=== PATIENT | female | born 1975 | race Caucasian/White ===

== ENCOUNTER 2018-07-06 14:22 | Emergency (ER) | payer BC ==
[~2018-07-06] VITALS: Ht 162.6 cm; Wt 49.4 kg
[2018-07-06 14:35] VITALS: Ht 162.6 cm; Wt 49.4 kg
[2018-07-06 15:32] LABS: BASOPHIL % 1.3 % (0-2); PLATELET COUNT 206 x10^3mcL (130-400)
[2018-07-06 15:44] LABS: RED CELL DISTRIBUTION WIDTH 16.9 % (11.5-14.5)
[2018-07-06 15:50] LABS: CARBON DIOXIDE 24.2 mmol/L (21-32); CHLORIDE SERUM 110 mmol/L (98-107); CREATININE SERUM 0.6 mg/dL (0.6-1.0); GFR1 > 60 mL/min; GLUCOSE SERUM 103 mg/dL (74-106); POTASSIUM SERUM 3.8 mmol/L (3.5-5.1); SODIUM SERUM 143 mmol/L (136-145)
[2018-07-06 15:56] LABS: ALBUMIN 3.6 g/dL (3.4-5.0); ALKALINE PHOSPHATASE 176 U/L (46-116); ALT/SGPT 77 U/L (14-59); AST/SGOT 28 U/L (15-37); BILIRUBIN TOTAL 0.22 mg/dL (0.20-1.00); TOTAL PROTEIN, SERUM 7.8 g/dL (6.4-8.2)
[2018-07-06 17:00] VITALS: BP 111/74
== END 2018-07-06 17:00 | disposition home or self-care (01) ==
LOC: ED 14:22
PROVIDERS: Emergency Medicine
DX: K31.84 Gastroparesis (principal); R07.89 Other chest pain; K22.6 Gastro-esophageal laceration-hemorrhage syndrome; Z88.0 Allergy status to penicillin
CPT/HCPCS: 36415; J8597; Q0092; Q0162